=== PATIENT | female | born 1990 | race Caucasian/White ===

== ENCOUNTER 2016-11-28 00:43 | Emergency (ER) | payer BC, OTHER ==
[2016-11-28 01:00] VITALS: BP 148/85
--- NOTE | 2016-11-28 01:19 | EDM.PDOC ---
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 Patient is 7 weeks . She is 2 para zero. The patient had some spotting one time a short while ago this was preceded with some lower back discomfort. Patient hasn't had any cramping or contractions. She's had a prior miscarriage about 6 years ago at the very tail end of the first trimester. Patient denies any fevers or chills no burning or frequency with urination. 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 Social & Family History - Family History Family Medical History: Noncontributory - Tobacco Use Smoking Status *Q: Never Smoker - Caffeine Use Caffeine Use: Reports: None - Alcohol Use Days Per Week of Alcohol Use: 0 - Recreational Drug Use Recreational Drug Use: No ED ROS GENERAL - Review of Systems Review Of Systems: See Below Constitutional: Reports: No Symptoms Respiratory: Reports: No Symptoms Cardiovascular: Reports: No Symptoms GI/Abdominal: Reports: No Symptoms : Denies: Dysuria, Flank Pain, Frequency, Hematuria ED EXAM - Physical Exam Exam: See Below Exam Limited By: No Limitations General Appearance: Alert, No Apparent Distress Respiratory/Chest: No Respiratory Distress, Lungs Clear, Normal Breath Sounds Cardiovascular: Regular Rate, Rhythm, No Edema, No Murmur GI/Abdominal: Normal Bowel Sounds, Soft, Non-Tender (Female) Exam: Normal Bimanual Exam, Normal External Exam, Other (Speculum exam reveals no anatomic abnormalities she's got a scant amount of blood noticed no clots no tissue bimanual examination is unremarkable no cervical motion tenderness) Extremities: Normal Inspection Neurological: Alert, Oriented Course - Vital Signs Last Recorded V/S: Last Vital Signs Temp 36.7 C 11/28/16 00:50 Pulse 65 11/28/16 00:50 Resp 18 11/28/16 00:50 BP 148/85 H 11/28/16 00:50 Pulse Ox 100 11/28/16 00:50 - Orders/Labs/Meds Orders: Active Orders 24 hr Category Date Time Status PATIENT RETYPE [BBK] Stat Lab 11/28/16 01:31 Results RH IMMUNE GLOBULIN [BBK] Stat Lab 11/28/16 01:31 Results RHIG WORKUP, 1ST TRIMESTER [BBK] Stat Lab 11/28/16 01:31 Results TYPE AND SCREEN [BBK] Stat Lab 11/28/16 01:31 Results Labs: Laboratory Tests 11/28/16 11/28/16 11/28/16 Range/Units 01:30 01:31 01:31 WBC 10.51 H (3.98-10.04) K/mm3 RBC 4.87 (3.98-5.22) M/mm3 Hgb 14.4 (11.2-15.7) gm/L Hct 40.7 (34.1-44.9) % MCV 83.6 (79.4-94.8) fl MCH 29.6 (25.6-32.2) pg MCHC 35.4 (32.2-35.5) g/dl RDW Std Deviation 37.6 (36.4-46.3) fL Plt Count 272 (182-369) K/mm3 MPV 10.1 (9.4-12.3) fl Neutrophils % (Manual) 87 H (40-60) % Band Neutrophils % 0 (0-10) % Lymphocytes % (Manual) 11 L (20-40) % Atypical Lymphs % 0 % Monocytes % (Manual) 1 L (2-10) % Eosinophils % (Manual) 1 (0.7-5.8) % Basophils % (Manual) 0 L (0.1-1.2) Platelet Estimate Adequate RBC Morph Comment Normal HCG, Quant 619515.0 mIU/mL Urine Color Light yellow (Yellow) Urine Appearance Clear (Clear) Urine pH 6.5 (5.0-8.0) Ur Specific [place] 1.015 (1.005-1.030) Urine Protein Negative (Negative) Urine Glucose (UA) Negative (Negative) Urine Ketones 1+ H (Negative) Urine Occult Blood 2+ H (Negative) Urine Nitrite Negative (Negative) Urine Bilirubin Negative (Negative) Urine Urobilinogen 0.2 (0.2-1.0) Ur Leukocyte Esterase Negative (Negative) Urine RBC 0-5 (0-5) /hpf Urine WBC 0-5 (0-5) /hpf Ur Epithelial Cells Not Reportable Ur Squamous Epith Cells 5-10 H (0-5) /hpf Urine Bacteria Few (FEW) /hpf Urine Mucus Few (FEW) /hpf Blood Type Gel Antibody Screen Rhogam Indicated 11/28/16 Range/Units 01:31 WBC (3.98-10.04) K/mm3 RBC (3.98-5.22) M/mm3 Hgb (11.2-15.7) gm/L Hct (34.1-44.9) % MCV (79.4-94.8) fl MCH (25.6-32.2) pg MCHC (32.2-35.5) g/dl RDW Std Deviation (36.4-46.3) fL Plt Count (182-369) K/mm3 MPV (9.4-12.3) fl Neutrophils % (Manual) (40-60) % Band Neutrophils % (0-10) % Lymphocytes % (Manual) (20-40) % Atypical Lymphs % % Monocytes % (Manual) (2-10) % Eosinophils % (Manual) (0.7-5.8) % Basophils % (Manual) (0.1-1.2) Platelet Estimate RBC Morph Comment HCG, Quant mIU/mL Urine Color (Yellow) Urine Appearance (Clear) Urine pH (5.0-8.0) Ur Specific [place] (1.005-1.030) Urine Protein (Negative) Urine Glucose (UA) (Negative) Urine Ketones (Negative) Urine Occult Blood (Negative) Urine Nitrite (Negative) Urine Bilirubin (Negative) Urine Urobilinogen (0.2-1.0) Ur Leukocyte Esterase (Negative) Urine RBC (0-5) /hpf Urine WBC (0-5) /hpf Ur Epithelial Cells Ur Squamous Epith Cells (0-5) /hpf Urine Bacteria (FEW) /hpf Urine Mucus (FEW) /hpf Blood Type AB NEGATIVE Gel Antibody Screen Negative Rhogam Indicated Yes - Re-Assessments/Exams Free Text/Narrative Re-Assessment/Exam: 11/28/16 03:36 Labs unrevealing quantitative hCG is consistent with a seven-week . Blood type is AB- she did receive RhoGAM. 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 Departure - Departure Time of Disposition: 03:37 Disposition: Home, Self-Care 01 Clinical Impression: Threatened - Discharge Information Forms: ED Department Discharge Additional Instructions: Return to the emergency room with any questions or problems. You should take it easy, mostly bedrest the next couple of days. Return to the emergency room with heavy bleeding, more than 2 saturated pads an hour for [address] Followup with Dr[address] Fontenot on as scheduled - My Orders Last 24 Hours: My Active Orders 11/28/16 01:31 PATIENT RETYPE [BBK] Stat RH IMMUNE GLOBULIN [BBK] Stat RHIG WORKUP, 1ST TRIMESTER [BBK] Stat TYPE AND SCREEN [BBK] Stat - Assessment/Plan Last 24 Hours: My Active Orders 11/28/16 01:31 PATIENT RETYPE [BBK] Stat RH IMMUNE GLOBULIN [BBK] Stat RHIG WORKUP, 1ST TRIMESTER [BBK] Stat TYPE AND SCREEN [BBK] Stat
== END 2016-11-28 03:54 | disposition home or self-care (01) ==
LOC: JD.ED 00:43
DX: O20.0 Threatened abortion (principal); Z3A.01 Less than 8 weeks gestation of pregnancy
CPT/HCPCS: 36415; 81001; 84702; 85025; 86850; 86900; 86901; 96372; 99284; J2790; 99283

== ENCOUNTER 2017-07-03 16:47 | Inpatient (IN) | payer OTHER ==
[2017-07-03] MEDS ORDERED: Nalbuphine 20 MG/1 ML Amp IVPUSH PRN (17:05)
[2017-07-03] MEDS ORDERED: Sodium Chloride 0.9% 10 ML Syringe FLUSH PRN (17:05)
[2017-07-03] MEDS ORDERED: Ondansetron 4 MG/2 ML SDV IVPUSH PRN ×2 (17:05→20:58)
--- NOTE | 2017-07-03 17:09 | PCM.LDHP ---
L&D History of Present Illness - General Date of Service: 07/03/17 Admit Problem/Dx: Patient Status Order with Admit Dx/Problem 07/03/17 17:06 Patient Status [ADT] Routine Admission Diagnosis/Problem Admission Diagnosis/Problem 37 weeks gestation of Source of Information: Patient History Limitations: Reports: No Limitations - History of Present Illness Introduction:: Patient is a 27 y/o at 37 3/7 wks gestation who presents for IOL. At last clinic appointment was found to have a FH low for dates. For this reason was set up for an US. This was done today with an overall EFW of the 14%, but AC < 3%. Dopplers upper end of normal range. Also found in clinic to have a mild range BP of 140/90. Denies headaches, vision changes, RUQ pain. 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 : 2 Para: 0 LMP (Approximate): - Past Surgical History HEENT Surgical History: Reports: Oral Surgery (wisdom tooth extraction) Social & Family History - Family History Family Medical History: Noncontributory - Tobacco Use Smoking Status *Q: Never Smoker - Caffeine Use Caffeine Use: Reports: None - Alcohol Use Alcohol Use History: No Days Per Week of Alcohol Use: 0 - Recreational Drug Use Recreational Drug Use: No H&P Review of Systems - Review of Systems: Review Of Systems: See Below General: Reports: No Symptoms Pulmonary: Reports: No Symptoms Cardiovascular: Reports: No Symptoms Gastrointestinal: Reports: No Symptoms Genitourinary: Reports: No Symptoms Musculoskeletal: Reports: No Symptoms L&D Exam - Exam Exam: See Below - OB Specific Contraction Intensity: Mild Movement: Active Heart Tones: Present Heart Tones per Min: 135 Heart Rate (FHR) Variability: Moderate (6-25 bmp) Presentation: Vertex - Villanueva Score Villanueva Score Cervix Position: Midposition Villanueva Score Consistency: Soft Villanueva Score Effacement: 51-70% Villanueva Score Dilation: 3-4 cm Villanueva Score Infant's Station: -2 Villanueva Score Total: 8 - Exam General: Alert, Oriented, Cooperative Lungs: Clear to Auscultation, Normal Respiratory Effort Cardiovascular: Regular Rate, Regular Rhythm GI/Abdominal Exam: Soft, Non-Tender Genitourinary: Normal external exam Extremities: Normal Inspection Skin: Warm, Dry, Intact Neurological: Reflexes Equal Bilateral DTR: 2+: Patella (L), Patella (R) - Patient Data Result Diagrams: 07/03/17 17:30 07/03/17 17:35 - Problem List (1) 37 weeks gestation of SNOMED Code(s): 99759235 ICD Code: Z3A.37 - 37 WEEKS GESTATION OF Status: Acute Current Visit: Yes (2) Preeclampsia SNOMED Code(s): 002575654 ICD Code: O14.90 - UNSPECIFIED PRE-ECLAMPSIA, UNSPECIFIED TRIMESTER Status : Acute Current Visit: Yes Qualifiers: Trimester: third trimester Qualified Code(s): O14.93 - Unspecified pre- eclampsia, third trimester (3) IUGR (intrauterine growth restriction) SNOMED Code(s): 22193492 ICD Code: [id number] - Status: Acute Current Visit: Yes Problem List Initiated/Reviewed/Updated: Yes Orders Last 24hrs: Active Orders 24 hr Category Date Time Status Patient Status [ADT] Routine ADT 07/03/17 17:06 Ordered Communication Order [RC] ASDIRECTED Care 07/03/17 17:05 Ordered Communication Order [RC] ASDIRECTED Care 07/03/17 17:05 Ordered Communication Order [RC] ASDIRECTED Care 07/03/17 17:05 Ordered Heart Tones [RC] ASDIRECTED Care 07/03/17 17:06 Ordered Notify Provider [RC] ASDIRECTED Care 07/03/17 17:05 Ordered Notify Provider [RC] PRN Care 07/03/17 17:05 Ordered Peripheral IV Care [RC] . DIRECTED Care 07/03/17 17:06 Ordered Up ad Christine [RC] ASDIRECTED Care 07/03/17 17:05 Ordered Vaginal Exam [RC] ASDIRECTED Care 07/03/17 17:05 Ordered Vital Signs [RC] ASDIRECTED Care 07/03/17 17:05 Ordered Regular Diet [DIET] Diet 07/03/17 Dinner Ordered ALANINE AMINOTRANSFERASE,ALT [CHEM] Routine Lab 07/03/17 17:05 Ordered ASPARTATE AMNIOTRANSFERASE,AST [CHEM] Routine Lab 07/03/17 17:05 Ordered CBC W/O DIFF,HEMOGRAM [HEME] Routine Lab 07/03/17 17:05 Ordered CREATININE W/GFR [CHEM] Routine Lab 07/03/17 17:05 Ordered TYPE AND SCREEN [BBK] Routine Lab 07/03/17 17:05 Ordered Lactated Ringers [Ringers, Lactated] 1,000 ml Med 07/03/17 17:15 Ordered IV ASDIRECTED Nalbuphine [Nubain] Med 07/03/17 17:05 Ordered 10 mg IVPUSH Q2H PRN Ondansetron [Zofran] Med 07/03/17 17:05 Ordered 4 mg IVPUSH Q4H PRN Oxytocin/Lactated Ringers [Pitocin in LR 10 Units/1,000 Med 07/03/17 17:15 Ordered ML] 10 unit in 1,000 ml IV .CONTINUOUS Oxytocin/Lactated Ringers [Pitocin in LR 10 Units/1,000 Med 07/03/17 17:15 Ordered ML] 10 unit in 1,000 ml IV TITRATE Sodium Chloride 0.9% [Saline Flush] Med 07/03/17 17:05 Ordered 10 ml FLUSH ASDIRECTED PRN Electronic Heart Tones Ext w TOCO [WOMSER] Oth 07/03/17 17:05 Ordered Routine Electronic Heart Tones Internal [WOMSER] Per Unit Oth 07/03/17 17:05 Ordered Routine Peripheral IV Insertion Adult [OM.PC] Routine Oth 07/03/17 17:05 Ordered Resuscitation Status Routine Resus Stat 07/03/17 17:05 Ordered Assessment/Plan Comment:: * CBC, T&S, AST, ALT, Creatinine done * Will eventually start pitocin and arom * GBS negative no need for antibiotics 1814 * Received call from nursing that last 2 BP's severe range. Still working on admission. Asked to given 200 mg of oral labetalol (given 1822) and I would be in to assess 184 * Hold on induction for now * BP's still high, will give 20 mg of IV labetalol (given 1852) * Start magnesium * Labs returned normal. * If remain this high may need to consider moving towards
[2017-07-03] MEDS ORDERED: Oxytocin/Lactated Ringers 10 UNIT/1,000 ML BAG IV SCH ×2 (17:15)
[2017-07-03] MEDS: Lactated Ringers 1,000 ML IV SCH ×2 (17:55→20:55)
[2017-07-03] MEDS ORDERED: Labetalol 100 MG Tab PO ONE (18:16)
[2017-07-03] MEDS ORDERED: Calcium Gluconate 10% 1 GM/10 ML SDV IV PRN (18:43)
[2017-07-03] MEDS ORDERED: Magnesium Sulfate/Water 2 GM in Premix Bag 1 BAG IV ONE (18:43)
[2017-07-03] MEDS ORDERED: Magnesium Sulfate/Water 4 GM in Premix Bag 1 BAG IV ONE (18:43)
[2017-07-03] MEDS ORDERED: Magnesium Sulfate/Water 100 ML ONE (18:47)
[2017-07-03] MEDS ORDERED: Magnesium Sulfate/Water 50 ML ONE (18:47)
[2017-07-03] MEDS ORDERED: Magnesium Sulfate/Water 40 GM/1,000 ML BAG ONE (18:48)
[2017-07-03] MEDS ORDERED: Labetalol 100 MG/20 ML MDV ONE (18:49)
[2017-07-03] MEDS ORDERED: Labetalol 100 MG/20 ML MDV IVPUSH ONE (18:50)
[2017-07-03] MEDS: Magnesium Sulfate/Water 40 GM/1,000 ML BAG IV SCH (19:45)
--- NOTE | 2017-07-03 19:50 | PCM.SN ---
- Free Text/Narrative Note: Last 3 BP's mild range. 144/103, 148/89, and 152/97. Will start IOL. AROM performed and pitocin to be started. Charis Fontenot MD
[2017-07-03] MEDS ORDERED: diphenhydrAMINE 50 MG/ML SDV IVPUSH PRN (20:58)
[2017-07-03] MEDS ORDERED: fentaNYL 100 MCG/2 ML SDV EPIDUR PRN (20:58)
[2017-07-03] MEDS ORDERED: ePHEDrine 50 MG/ML SDV IVPUSH PRN (20:58)
--- NOTE | 2017-07-03 20:58 | PCM.PREANE ---
Preanesthetic Assessment - Procedure Proposed Procedure: MAYKEL - Anesthesia/Transfusion/Family Hx Anesthesia History: No Prior Anesthesia Family History of Anesthesia Reaction: No Transfusion History: No Prior Transfusion(s) - Review of Systems General: No Symptoms Pulmonary: No Symptoms Cardiovascular: No Symptoms Gastrointestinal: Other (GERD occasionally ) Neurological: No Symptoms Other: Reports: None - Physical Assessment NPO Status Date: 07/03/17 NPO Status Time: 20:00 Pulse: 58 O2 Sat by Pulse Oximetry: 100 Respiratory Rate: 15 Blood Pressure: 156/100 Vital Signs: Last Vital Signs Temp 36.4 C 07/03/17 17:37 Pulse 58 L 07/03/17 18:53 Resp 15 07/03/17 17:37 BP 190/119 H 07/03/17 18:53 Pulse Ox 100 07/03/17 17:37 Height: 1.52 m Weight: 59.421 kg ASA Class: 2 Mental Status: Alert & Oriented x3 Airway Class: Mallampati = 1 Dentition: Reports: Normal Dentition Thyro-Mental Finger Breadths: 3 Mouth Opening Finger Breadths: 3 ROM/Head Extension: Full Lungs: Clear to Auscultation, Normal Respiratory Effort Cardiovascular: Regular Rate, Regular Rhythm - Lab Values: Laboratory Last Values WBC 11.16 K/mm3 (3.98-10.04) H 07/03/17 17:30 RBC 4.48 M/mm3 (3.98-5.22) 07/03/17 17:30 Hgb 13.8 gm/L (11.2-15.7) 07/03/17 17:30 Hct 40.9 % (34.1-44.9) 07/03/17 17:30 MCV 91.3 fl (79.4-94.8) 07/03/17 17:30 MCH 30.8 pg (25.6-32.2) 07/03/17 17:30 MCHC 33.7 g/dl (32.2-35.5) 07/03/17 17:30 RDW Std Deviation 45.0 fL (36.4-46.3) 07/03/17 17:30 Plt Count 170 K/mm3 (182-369) L 07/03/17 17:30 MPV 11.7 fl (9.4-12.3) 07/03/17 17:30 Creatinine 0.7 mg/dL (0.55-1.02) 07/03/17 17:35 Est Cr Clr Drug Dosing 88.25 mL/min 07/03/17 17:35 Estimated GFR (MDRD) > 60 mL/min (>60) 07/03/17 17:35 AST 16 U/L (15-37) 07/03/17 17:35 ALT 18 U/L (14-59) 07/03/17 17:35 Urine Color Yellow (Yellow) 07/03/17 18:35 Urine Appearance Clear (Clear) 07/03/17 18:35 Urine pH 6.5 (5.0-8.0) 07/03/17 18:35 Ur Specific [place] 1.020 (1.005-1.030) 07/03/17 18:35 Urine Protein 1+ (Negative) H 07/03/17 18:35 Urine Glucose (UA) Negative (Negative) 07/03/17 18:35 Urine Ketones Negative (Negative) 07/03/17 18:35 Urine Occult Blood Negative (Negative) 07/03/17 18:35 Urine Nitrite Negative (Negative) 07/03/17 18:35 Urine Bilirubin Negative (Negative) 07/03/17 18:35 Urine Urobilinogen 0.2 (0.2-1.0) 07/03/17 18:35 Ur Leukocyte Esterase Negative (Negative) 07/03/17 18:35 Urine RBC 0-5 /hpf (0-5) 07/03/17 18:35 Urine WBC 0-5 /hpf (0-5) 07/03/17 18:35 Ur Epithelial Cells 0-5 /hpf (0-5) 07/03/17 18:35 Urine Bacteria Rare /hpf (FEW) 07/03/17 18:35 Urine Mucus Not seen /hpf (FEW) 07/03/17 18:35 - Allergies Allergies/Adverse Reactions: Allergies Allergy/AdvReac Type Severity Reaction Status Date / Time peanut Allergy Severe Other Verified 07/03/17 17:49 soy Allergy Severe Other Verified 07/03/17 17:49 - Blood Blood Available: No Product(s) Available: None - Anesthesia Plan Pre-Op Medication Ordered: None - Acknowledgements Anesthesia Type Planned: Epidural Pt an Appropriate Candidate for the Planned Anesthesia: Yes Alternatives and Risks of Anesthesia Discussed w Pt/Guardian: Yes Pt/Guardian Understands and Agrees with Anesthesia Plan: Yes PreAnesthesia Questionnaire - Past Health History Medical/Surgical History: Denies 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: , 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 - Past Surgical History HEENT Surgical History: Reports: Oral Surgery (wisdom tooth extraction) - SUBSTANCE USE Smoking Status *Q: Never Smoker Second Hand Smoke Exposure: No Days Per Week of Alcohol Use: 0 Recreational Drug Use History: No - HOME MEDS Home Medications: Home Meds PNV95/Ferrous Fumarate/FA [ Formula] 1 each PO DAILY 11/28/16 [History] - CURRENT (IN HOUSE) MEDS Current Meds: Current Medications Calcium Gluconate (Calcium Gluconate) 1 gm IV ASDIRECTED PRN PRN Reason: respiratory distress Lactated Ringer's (Ringers, Lactated) 1,000 mls @ 40 mls/hr IV ASDIRECTED KRAEN Last Admin: 07/03/17 17:55 Dose: 40 mls/hr Oxytocin/Lactated Ringer's (Pitocin In Lr 10 Units/1,000 Ml) 10 unit in 1,000 mls @ 12 mls/hr IV TITRATE KAREN; 2 MUNITS/MIN PRN Reason: Protocol Last Titration: 07/03/17 20:21 Dose: 2 munits/min, 12 mls/hr Oxytocin/Lactated Ringer's (Pitocin In Lr 10 Units/1,000 Ml) 10 unit in 1,000 mls @ 500 mls/hr IV .CONTINUOUS KAREN Magnesium Sulfate (Magnesium Sulfate 40 Gm In Water 1000 Ml) 40 gm in 1,000 mls @ 50 mls/hr IV ASDIRECTED KAREN Last Admin: 07/03/17 19:45 Dose: 50 mls/hr Nalbuphine HCl (Nubain) 10 mg IVPUSH Q2H PRN PRN Reason: Pain (moderate 4-6) Ondansetron HCl (Zofran) 4 mg IVPUSH Q4H PRN PRN Reason: Nausea/Vomiting Sodium Chloride (Saline Flush) 10 ml FLUSH ASDIRECTED PRN PRN Reason: Keep Vein Open Discontinued Medications Magnesium Sulfate 4 gm/ Premix 100 mls @ 300 mls/hr IV ONETIME ONE Stop: 07/03/17 19:02 Last Admin: 07/03/17 19:05 Dose: 300 mls/hr Magnesium Sulfate 2 gm/ Premix 50 mls @ 300 mls/hr IV ONETIME ONE Stop: 07/03/17 18:52 Last Admin: 07/03/17 19:32 Dose: 300 mls/hr Magnesium Sulfate (Magnesium Sulfate 4 Gm In Water 100 Ml) Confirm Administered Dose 100 mls @ as directed .ROUTE .STK-MED ONE Stop: 07/03/17 18:48 Magnesium Sulfate (Magnesium Sulfate 2 Gm In Water 50 Ml) Confirm Administered Dose 50 mls @ as directed .ROUTE .STK-MED ONE Stop: 07/03/17 18:48 Magnesium Sulfate (Magnesium Sulfate 40 Gm In Water 1000 Ml) Confirm Administered Dose 40 gm in 1,000 mls @ as directed .ROUTE .STK-MED ONE Stop: 07/03/17 18:49 Labetalol HCl (Normodyne) 200 mg PO ONETIME ONE Stop: 07/03/17 18:17 Last Admin: 07/03/17 18:23 Dose: 200 mg Labetalol HCl (Normodyne) 20 mg IVPUSH ONETIME ONE PRN Reason: Protocol Stop: 07/03/17 18:51 Last Admin: 07/03/17 18:53 Dose: 4 ml Labetalol HCl (Normodyne) Confirm Administered Dose 100 mg .ROUTE .STK-MED ONE Stop: 07/03/17 18:50
[2017-07-03] MEDS ORDERED: fentaNYL 100 MCG/2 ML SDV ONE (20:59)
[2017-07-03] MEDS ORDERED: Bupivacaine/fentaNYL/NS 100 ML Bag EPIDUR SCH (21:00)
--- NOTE | 2017-07-03 21:55 | PCM.DEL ---
L & D Note - General Info Date of Service: 07/03/17 - Delivery Note Labor: Induced by ARM, Induced by Oxytocin Delivery Outcome: Livebirth Infant Delivery Method: Spontaneous Vaginal Delivery-Single Delivery Mode: Spontaneous Presentation: Right Occiput Anterior (HOANG) Nuchal Cord: None Anesthesia Type: Epidural Amniotic Fluid Description: Clear Episiotomy Type: None Laceration: None Placenta: Intact, Spontaneous Cord: 3 Vessels Estimated Blood Loss: 200 Resuscitation Needed: Yes [place]: Bulb Syringe, Stimulated, Warmed, [place] Used, Warmer Used Score 1 min: 8 Score 5 min: 8 Delivery Comments (Free Text/Narrative):: Patient made rapid change to complete dilation. Did receive epidural just prior to starting pushing. Once began pushing head delivered from an HOANG presentation. No nuchal cord present. With gentle downward traction the shoulders and body delivered. Infant placed on maternal abdomen. Cord clamped and cut. Cord blood obtained. Placenta allowed time to separate and spontaneously expelled. Inspection of the perineum showed no lacerations - Patient Data Vitals - Most Recent: Last Vital Signs Temp 36.4 C 07/03/17 17:37 Pulse 58 L 07/03/17 20:59 Resp 15 07/03/17 20:59 BP 156/100 H 07/03/17 20:59 Pulse Ox 100 07/03/17 20:59 Weight - Most Recent: 59.421 kg I&O - Last 24 Hours: Intake & Output 07/03/17 07/03/17 07/03/17 06:59 14:59 22:59 Output Total 475 Balance -475 Lab Results Last 24 Hours: Laboratory Results - last 24 hr 07/03/17 07/03/17 07/03/17 Range/Units 17:30 17:30 17:35 WBC 11.16 H (3.98-10.04) K/mm3 RBC 4.48 (3.98-5.22) M/mm3 Hgb 13.8 (11.2-15.7) gm/L Hct 40.9 (34.1-44.9) % MCV 91.3 (79.4-94.8) fl MCH 30.8 (25.6-32.2) pg MCHC 33.7 (32.2-35.5) g/dl RDW Std Deviation 45.0 (36.4-46.3) fL Plt Count 170 L (182-369) K/mm3 MPV 11.7 (9.4-12.3) fl Creatinine 0.7 (0.55-1.02) mg/dL Est Cr Clr Drug Dosing 88.25 mL/min Estimated GFR (MDRD) > 60 (>60) mL/min AST 16 (15-37) U/L ALT 18 (14-59) U/L Urine Color (Yellow) Urine Appearance (Clear) Urine pH (5.0-8.0) Ur Specific [place] (1.005-1.030) Urine Protein (Negative) Urine Glucose (UA) (Negative) Urine Ketones (Negative) Urine Occult Blood (Negative) Urine Nitrite (Negative) Urine Bilirubin (Negative) Urine Urobilinogen (0.2-1.0) Ur Leukocyte Esterase (Negative) Urine RBC (0-5) /hpf Urine WBC (0-5) /hpf Ur Epithelial Cells (0-5) /hpf Urine Bacteria (FEW) /hpf Urine Mucus (FEW) /hpf Blood Type AB NEGATIVE 07/03/17 Range/Units 18:35 WBC (3.98-10.04) K/mm3 RBC (3.98-5.22) M/mm3 Hgb (11.2-15.7) gm/L Hct (34.1-44.9) % MCV (79.4-94.8) fl MCH (25.6-32.2) pg MCHC (32.2-35.5) g/dl RDW Std Deviation (36.4-46.3) fL Plt Count (182-369) K/mm3 MPV (9.4-12.3) fl Creatinine (0.55-1.02) mg/dL Est Cr Clr Drug Dosing mL/min Estimated GFR (MDRD) (>60) mL/min AST (15-37) U/L ALT (14-59) U/L Urine Color Yellow (Yellow) Urine Appearance Clear (Clear) Urine pH 6.5 (5.0-8.0) Ur Specific [place] 1.020 (1.005-1.030) Urine Protein 1+ H (Negative) Urine Glucose (UA) Negative (Negative) Urine Ketones Negative (Negative) Urine Occult Blood Negative (Negative) Urine Nitrite Negative (Negative) Urine Bilirubin Negative (Negative) Urine Urobilinogen 0.2 (0.2-1.0) Ur Leukocyte Esterase Negative (Negative) Urine RBC 0-5 (0-5) /hpf Urine WBC 0-5 (0-5) /hpf Ur Epithelial Cells 0-5 (0-5) /hpf Urine Bacteria Rare (FEW) /hpf Urine Mucus Not seen (FEW) /hpf Blood Type Med Orders - Current: Current Medications Calcium Gluconate (Calcium Gluconate) 1 gm IV ASDIRECTED PRN PRN Reason: respiratory distress Diphenhydramine HCl (Benadryl) 25 mg IVPUSH Q6H PRN PRN Reason: Pruritis Ephedrine Sulfate (Ephedrine Sulfate) 5 mg IVPUSH ASDIRECTED PRN PRN Reason: Hypotension Fentanyl (Sublimaze) 100 mcg EPIDUR Q3H PRN PRN Reason: Pain Last Admin: 07/03/17 21:32 Dose: 100 mcg Fentanyl/Bupivacaine HCl (Fentanyl/Bupivacaine/Ns 2 Mcg-0.125% 100 Ml) 100 ml EPIDUR ASDIRECTED KAREN Last Admin: 07/03/17 21:33 Dose: 100 ml Lactated Ringer's (Ringers, Lactated) 1,000 mls @ 40 mls/hr IV ASDIRECTED KAREN Last Admin: 07/03/17 20:55 Dose: 999 mls/hr Oxytocin/Lactated Ringer's (Pitocin In Lr 10 Units/1,000 Ml) 10 unit in 1,000 mls @ 12 mls/hr IV TITRATE KAREN; 2 MUNITS/MIN PRN Reason: Protocol Last Titration: 07/03/17 21:09 Dose: 0 munits/min, 0 mls/hr Oxytocin/Lactated Ringer's (Pitocin In Lr 10 Units/1,000 Ml) 10 unit in 1,000 mls @ 500 mls/hr IV .CONTINUOUS KAREN Magnesium Sulfate (Magnesium Sulfate 40 Gm In Water 1000 Ml) 40 gm in 1,000 mls @ 50 mls/hr IV ASDIRECTED KAREN Last Admin: 07/03/17 19:45 Dose: 50 mls/hr Nalbuphine HCl (Nubain) 10 mg IVPUSH Q2H PRN PRN Reason: Pain (moderate 4-6) Ondansetron HCl (Zofran) 4 mg IVPUSH Q4H PRN PRN Reason: Nausea/Vomiting Ondansetron HCl (Zofran) 4 mg IVPUSH ONETIME PRN PRN Reason: Nausea/Vomiting Sodium Chloride (Saline Flush) 10 ml FLUSH ASDIRECTED PRN PRN Reason: Keep Vein Open Discontinued Medications Fentanyl (Sublimaze) Confirm Administered Dose 100 mcg .ROUTE .STK-MED ONE Stop: 07/03/17 21:00 Magnesium Sulfate 4 gm/ Premix 100 mls @ 300 mls/hr IV ONETIME ONE Stop: 07/03/17 19:02 Last Admin: 07/03/17 19:05 Dose: 300 mls/hr Magnesium Sulfate 2 gm/ Premix 50 mls @ 300 mls/hr IV ONETIME ONE Stop: 07/03/17 18:52 Last Admin: 07/03/17 19:32 Dose: 300 mls/hr Magnesium Sulfate (Magnesium Sulfate 4 Gm In Water 100 Ml) Confirm Administered Dose 100 mls @ as directed .ROUTE [facility] ONE Stop: 07/03/17 18:48 Last Admin: 07/03/17 20:48 Dose: Not Given Magnesium Sulfate (Magnesium Sulfate 2 Gm In Water 50 Ml) Confirm Administered Dose 50 mls @ as directed .ROUTE [facility] ONE Stop: 07/03/17 18:48 Last Admin: 07/03/17 20:48 Dose: Not Given Magnesium Sulfate (Magnesium Sulfate 40 Gm In Water 1000 Ml) Confirm Administered Dose 40 gm in 1,000 mls @ as directed .ROUTE .[facility] ONE Stop: 07/03/17 18:49 Last Admin: 07/03/17 20:48 Dose: Not Given Labetalol HCl (Normodyne) 200 mg PO ONETIME ONE Stop: 07/03/17 18:17 Last Admin: 07/03/17 18:23 Dose: 200 mg Labetalol HCl (Normodyne) 20 mg IVPUSH ONETIME ONE PRN Reason: Protocol Stop: 07/03/17 18:51 Last Admin: 07/03/17 18:53 Dose: 4 ml Labetalol HCl (Normodyne) Confirm Administered Dose 100 mg .ROUTE .STK-MED ONE Stop: 07/03/17 18:50 Last Admin: 07/03/17 20:48 Dose: Not Given - Problem List & Annotations (1) 37 weeks gestation of SNOMED Code(s): 38807781 Code(s): Z3A.37 - 37 WEEKS GESTATION OF Status: Acute Current Visit: Yes (2) Preeclampsia SNOMED Code(s): 198070551 Code(s): O14.90 - UNSPECIFIED PRE-ECLAMPSIA, UNSPECIFIED TRIMESTER Status: Acute Current Visit: Yes Qualifiers: Trimester: third trimester Qualified Code(s): O14.93 - Unspecified pre- eclampsia, third trimester (3) IUGR (intrauterine growth restriction) SNOMED Code(s): 42963473 Code(s): UMS9529 - Status: Acute Current Visit: Yes (4) Vaginal delivery SNOMED Code(s): 098091422 Code(s): O80 - ENCOUNTER FOR FULL-TERM UNCOMPLICATED DELIVERY Status: Acute Current Visit: Yes - Problem List Review Problem List Initiated/Reviewed/Updated: Yes - My Orders Last 24 Hours: My Active Orders 07/03/17 17:05 Communication Order [RC] ASDIRECTED Communication Order [RC] ASDIRECTED Communication Order [RC] ASDIRECTED Notify Provider [RC] ASDIRECTED Notify Provider [RC] PRN Vital Signs [RC] ASDIRECTED Nalbuphine [Nubain] 10 mg IVPUSH Q2H PRN Ondansetron [Zofran] 4 mg IVPUSH Q4H PRN Sodium Chloride 0.9% [Saline Flush] 10 ml FLUSH ASDIRECTED PRN Electronic Heart Tones Ext w TOCO [WOMSER] Routine Electronic Heart Tones Internal [WOMSER] Per Unit Routine Peripheral IV Insertion Adult [OM.PC] Routine Resuscitation Status Routine 07/03/17 17:06 Patient Status [ADT] Routine Peripheral IV Care [RC] . DIRECTED 07/03/17 17:15 Lactated Ringers [Ringers, Lactated] 1,000 ml IV ASDIRECTED Oxytocin/Lactated Ringers [Pitocin in LR 10 Units/1,000 ML] 10 unit in 1,000 ml IV .CONTINUOUS Oxytocin/Lactated Ringers [Pitocin in LR 10 Units/1,000 ML] 10 unit in 1,000 ml IV TITRATE 07/03/17 17:30 TYPE AND SCREEN [BBK] Routine 07/03/17 18:43 Bedrest [RC] ASDIRECTED Communication Order [RC] ASDIRECTED Notify Provider Status Change [RC] ASDIRECTED Notify Provider Vital Signs [RC] ASDIRECTED Notify Provider [RC] ASDIRECTED Vital Signs [RC] ASDIRECTED Calcium Gluconate 1 gm IV ASDIRECTED PRN 07/03/17 18:45 Magnesium Sulfate/Water [Magnesium Sulfate 40 GM in Water 1000 ML] 40 gm in 1, 000 ml IV ASDIRECTED Blood Pressure [OM.PC] ASDIRECTED Deep Tendon Reflexes [WOMSER] ASDIRECTED 07/03/17 Dinner Regular Diet [DIET] - Assessment Assessment:: 27 y/o G2 now P1011 PPD#0 from at 37 3/7 wks - Plan Plan:: / Severe preeclampsia * Continue magnesium * Hourly BP's * Strict I&O's * Encourage breast feeding * Discharge pending clinical course
[2017-07-03] MEDS ORDERED: Acetaminophen 325 MG Tab PO PRN (22:03)
[2017-07-03] MEDS ORDERED: Benzocaine/Menthol 20%-0.5% Spray 56 GM Canister TOP PRN (22:03)
[2017-07-03] MEDS ORDERED: Lanolin 100% Cream 7 GM Tube TOP PRN (22:03)
[2017-07-03] MEDS ORDERED: Docusate Sodium 100 MG Cap PO PRN (22:03)
[2017-07-03] MEDS ORDERED: Witch Hazel Medicated Pads 100/Jar TOP PRN (22:03)
[2017-07-03] MEDS: Ibuprofen 600 MG Tab PO PRN (23:19)
--- NOTE | 2017-07-04 06:50 | PCM.PNPP ---
- General Info Date of Service: 07/04/17 Functional Status: Reports: Pain Controlled, Urinating - Review of Systems General: Reports: No Symptoms Pulmonary: Reports: No Symptoms Cardiovascular: Reports: No Symptoms Gastrointestinal: Reports: No Symptoms Genitourinary: Reports: No Symptoms Musculoskeletal: Reports: No Symptoms Neurological: Reports: Headache (earlier in morning, now resolved ) - Patient Data Vital Signs - Most Recent: Last Vital Signs Temp 36.4 C 07/04/17 04:04 Pulse 73 07/04/17 04:04 Resp 14 07/04/17 04:04 BP 132/93 H 07/04/17 06:00 Pulse Ox 100 07/04/17 04:04 Weight - Most Recent: 59.421 kg I&O - Last 24 Hours: Intake & Output 07/03/17 07/03/17 07/04/17 14:59 22:59 06:59 Intake Total 2563 Output Total 475 2250 Balance -475 313 Lab Results - Last 24 Hours: Laboratory Results - last 24 hr 07/03/17 07/03/17 07/03/17 Range/Units 17:30 17:30 17:35 WBC 11.16 H (3.98-10.04) K/mm3 RBC 4.48 (3.98-5.22) M/mm3 Hgb 13.8 (11.2-15.7) gm/L Hct 40.9 (34.1-44.9) % MCV 91.3 (79.4-94.8) fl MCH 30.8 (25.6-32.2) pg MCHC 33.7 (32.2-35.5) g/dl RDW Std Deviation 45.0 (36.4-46.3) fL Plt Count 170 L (182-369) K/mm3 MPV 11.7 (9.4-12.3) fl Creatinine 0.7 (0.55-1.02) mg/dL Est Cr Clr Drug Dosing 88.25 mL/min Estimated GFR (MDRD) > 60 (>60) mL/min AST 16 (15-37) U/L ALT 18 (14-59) U/L Urine Color (Yellow) Urine Appearance (Clear) Urine pH (5.0-8.0) Ur Specific [place] (1.005-1.030) Urine Protein (Negative) Urine Glucose (UA) (Negative) Urine Ketones (Negative) Urine Occult Blood (Negative) Urine Nitrite (Negative) Urine Bilirubin (Negative) Urine Urobilinogen (0.2-1.0) Ur Leukocyte Esterase (Negative) Urine RBC (0-5) /hpf Urine WBC (0-5) /hpf Ur Epithelial Cells (0-5) /hpf Urine Bacteria (FEW) /hpf Urine Mucus (FEW) /hpf Blood Type AB NEGATIVE Gel Antibody Screen Positive 07/03/17 Range/Units 18:35 WBC (3.98-10.04) K/mm3 RBC (3.98-5.22) M/mm3 Hgb (11.2-15.7) gm/L Hct (34.1-44.9) % MCV (79.4-94.8) fl MCH (25.6-32.2) pg MCHC (32.2-35.5) g/dl RDW Std Deviation (36.4-46.3) fL Plt Count (182-369) K/mm3 MPV (9.4-12.3) fl Creatinine (0.55-1.02) mg/dL Est Cr Clr Drug Dosing mL/min Estimated GFR (MDRD) (>60) mL/min AST (15-37) U/L ALT (14-59) U/L Urine Color Yellow (Yellow) Urine Appearance Clear (Clear) Urine pH 6.5 (5.0-8.0) Ur Specific [place] 1.020 (1.005-1.030) Urine Protein 1+ H (Negative) Urine Glucose (UA) Negative (Negative) Urine Ketones Negative (Negative) Urine Occult Blood Negative (Negative) Urine Nitrite Negative (Negative) Urine Bilirubin Negative (Negative) Urine Urobilinogen 0.2 (0.2-1.0) Ur Leukocyte Esterase Negative (Negative) Urine RBC 0-5 (0-5) /hpf Urine WBC 0-5 (0-5) /hpf Ur Epithelial Cells 0-5 (0-5) /hpf Urine Bacteria Rare (FEW) /hpf Urine Mucus Not seen (FEW) /hpf Blood Type Gel Antibody Screen Med Orders - Current: Current Medications Acetaminophen (Tylenol) 650 mg PO Q4H PRN PRN Reason: mild pain or fever Benzocaine/Menthol (Dermoplast Pain Relief [place]) 0 gm TOP ASDIRECTED PRN PRN Reason: Perineal Comfort Measure Last Admin: 07/03/17 23:19 Dose: 1 can Calcium Gluconate (Calcium Gluconate) 1 gm IV ASDIRECTED PRN PRN Reason: respiratory distress Docusate Sodium (Colace) 100 mg PO BID PRN PRN Reason: Constipation Emollient Ointment (Lansinoh Hpa) 0 gm TOP ASDIRECTED PRN PRN Reason: Sore Nipples Last Admin: 07/03/17 23:19 Dose: 1 tube Lactated Ringer's (Ringers, Lactated) 1,000 mls @ 40 mls/hr IV ASDIRECTED KAREN Last Infusion: 07/04/17 02:55 Dose: Infused Magnesium Sulfate (Magnesium Sulfate 40 Gm In Water 1000 Ml) 40 gm in 1,000 mls @ 50 mls/hr IV ASDIRECTED KAREN Last Admin: 07/03/17 19:45 Dose: 50 mls/hr Ibuprofen (Motrin) 600 mg PO Q6H PRN PRN Reason: Mild pain or fever Last Admin: 07/03/17 23:19 Dose: 600 mg Witch Latosha (Tucks) 1 pad TOP ASDIRECTED PRN PRN Reason: Hemorrhoid pain Last Admin: 07/03/17 23:19 Dose: 1 container Discontinued Medications Diphenhydramine HCl (Benadryl) 25 mg IVPUSH Q6H PRN PRN Reason: Pruritis Ephedrine Sulfate (Ephedrine Sulfate) 5 mg IVPUSH ASDIRECTED PRN PRN Reason: Hypotension Fentanyl (Sublimaze) 100 mcg EPIDUR Q3H PRN PRN Reason: Pain Last Admin: 07/03/17 21:32 Dose: 100 mcg Fentanyl (Sublimaze) Confirm Administered Dose 100 mcg .ROUTE .STK-MED ONE Stop: 07/03/17 21:00 Last Admin: 07/04/17 05:20 Dose: Not Given Fentanyl/Bupivacaine HCl (Fentanyl/Bupivacaine/Ns 2 Mcg-0.125% 100 Ml) 100 ml EPIDUR ASDIRECTED KAREN Last Admin: 07/03/17 21:33 Dose: 100 ml Oxytocin/Lactated Ringer's (Pitocin In Lr 10 Units/1,000 Ml) 10 unit in 1,000 mls @ 12 mls/hr IV TITRATE KAREN; 2 MUNITS/MIN PRN Reason: Protocol Last Titration: 07/03/17 21:33 Dose: 999 mls/hr Oxytocin/Lactated Ringer's (Pitocin In Lr 10 Units/1,000 Ml) 10 unit in 1,000 mls @ 500 mls/hr IV .CONTINUOUS KAREN Magnesium Sulfate 4 gm/ Premix 100 mls @ 300 mls/hr IV ONETIME ONE Stop: 07/03/17 19:02 Last Admin: 07/03/17 19:05 Dose: 300 mls/hr Magnesium Sulfate 2 gm/ Premix 50 mls @ 300 mls/hr IV ONETIME ONE Stop: 07/03/17 18:52 Last Admin: 07/03/17 19:32 Dose: 300 mls/hr Magnesium Sulfate (Magnesium Sulfate 4 Gm In Water 100 Ml) Confirm Administered Dose 100 mls @ as directed .ROUTE .[facility] ONE Stop: 07/03/17 18:48 Last Admin: 07/03/17 20:48 Dose: Not Given Magnesium Sulfate (Magnesium Sulfate 2 Gm In Water 50 Ml) Confirm Administered Dose 50 mls @ as directed .ROUTE .[facility] ONE Stop: 07/03/17 18:48 Last Admin: 07/03/17 20:48 Dose: Not Given Magnesium Sulfate (Magnesium Sulfate 40 Gm In Water 1000 Ml) Confirm Administered Dose 40 gm in 1,000 mls @ as directed [facility] ONE Stop: 07/03/17 18:49 Last Admin: 07/03/17 20:48 Dose: Not Given Labetalol HCl (Normodyne) 200 mg PO ONETIME ONE Stop: 07/03/17 18:17 Last Admin: 07/03/17 18:23 Dose: 200 mg Labetalol HCl (Normodyne) 20 mg IVPUSH ONETIME ONE PRN Reason: Protocol Stop: 07/03/17 18:51 Last Admin: 07/03/17 18:53 Dose: 4 ml Labetalol HCl (Normodyne) Confirm Administered Dose 100 mg .[facility] ONE Stop: 07/03/17 18:50 Last Admin: 07/03/17 20:48 Dose: Not Given Nalbuphine HCl (Nubain) 10 mg IVPUSH Q2H PRN PRN Reason: Pain (moderate 4-6) Ondansetron HCl (Zofran) 4 mg IVPUSH Q4H PRN PRN Reason: Nausea/Vomiting Ondansetron HCl (Zofran) 4 mg IVPUSH ONETIME PRN PRN Reason: Nausea/Vomiting Sodium Chloride (Saline Flush) 10 ml FLUSH ASDIRECTED PRN PRN Reason: Keep Vein Open - Infant Interaction Disposition, : [place] in Room with Family Infant Interaction: Holding Infant Feeding: Attempted ; Nursed Fair/Poor Support Person: - Recovery Exam Fundal Tone: Firm Fundal Level: 1 Fingerbreadths Below Umbilicus Fundal Placement: Midline Lochia Amount: Small Lochia Color: [place]/Red Perineum Description: Intact, Minimal Bruising/Swelling Episiotomy/Laceration: None Bladder Status: Voiding - Exam General: Alert, Oriented, Cooperative Lungs: Clear to Auscultation, Normal Respiratory Effort Cardiovascular: Regular Rate, Regular Rhythm GI/Abdominal Exam: Soft, Non-Tender Extremities: Normal Inspection Skin: Warm, Dry, Intact Neurological: Reflexes Equal Bilateral (+2) - Problem List & Annotations (1) 37 weeks gestation of SNOMED Code(s): 03171231 Code(s): Z3A.37 - 37 WEEKS GESTATION OF Status: Acute Current Visit: Yes (2) Preeclampsia SNOMED Code(s): 856912815 Code(s): O14.90 - UNSPECIFIED PRE-ECLAMPSIA, UNSPECIFIED TRIMESTER Status: Acute Current Visit: Yes Qualifiers: Trimester: third trimester Qualified Code(s): O14.93 - Unspecified pre- eclampsia, third trimester (3) IUGR (intrauterine growth restriction) SNOMED Code(s): 92758657 Code(s): MGJ2237 - Status: Acute Current Visit: Yes (4) Vaginal delivery SNOMED Code(s): 391153620 Code(s): O80 - ENCOUNTER FOR FULL-TERM UNCOMPLICATED DELIVERY Status: Acute Current Visit: Yes - Problem List Review Problem List Initiated/Reviewed/Updated: Yes - My Orders Last 24 Hours: My Active Orders 07/03/17 17:05 Vital Signs [RC] ASDIRECTED Resuscitation Status Routine 07/03/17 17:06 Peripheral IV Care [RC] Q2HR 07/03/17 17:15 Lactated Ringers [Ringers, Lactated] 1,000 ml IV ASDIRECTED 07/03/17 17:30 ANTIBODY IDENTIFICATION [BBK] Routine TYPE AND SCREEN [BBK] Routine 07/03/17 18:43 Bedrest [RC] ASDIRECTED Communication Order [RC] ASDIRECTED Notify Provider Status Change [RC] ASDIRECTED Notify Provider Vital Signs [RC] ASDIRECTED Notify Provider [RC] ASDIRECTED Vital Signs [RC] Q1HR Calcium Gluconate 1 gm IV ASDIRECTED PRN 07/03/17 18:45 Magnesium Sulfate/Water [Magnesium Sulfate 40 GM in Water 1000 ML] 40 gm in 1, 000 ml IV ASDIRECTED Deep Tendon Reflexes [WOMSER] ASDIRECTED 07/03/17 22:03 Acetaminophen [Tylenol] 650 mg PO Q4H PRN Benzocaine/Menthol [Dermoplast Pain Relief [place]] See Dose Instructions TOP ASDIRECTED PRN Docusate Sodium [Colace] 100 mg PO BID PRN Ibuprofen [Motrin] 600 mg PO Q6H PRN Lanolin [Lansinoh HPA] See Dose Instructions TOP ASDIRECTED PRN Witch Latosha [Tucks] 1 pad TOP ASDIRECTED PRN Assess Lochia [WOMSER] Per Unit Routine Assess Uterine Involution [WOMSER] Per Unit Routine Breast Pump [WOMSER] Per Unit Routine Heat Therapy [OM.PC] PRN Ice Therapy [OM.PC] Per Unit Routine Perineal Care [OM.PC] Per Unit Routine Sitz Bath [OM.PC] Per Unit Routine 07/03/17 Breakfast Regular Diet [DIET] 07/04/17 22:03 Heat Therapy [OM.PC] PRN - Assessment Assessment:: 27 y/o G2 now P1011 PPD#1 from at 37 3/7 wks - Plan Plan:: / Severe preeclampsia * Continue magnesium. BP's have been normal to mild range after delivery. May require anti-hypertensive therapy once magnesium discontinued * Hourly BP's * Strict I&O's * Encourage breast feeding * Baby Rh negative, no need for Rhogam * Discharge tomorrow vs later if further monitoring required
[2017-07-04] MEDS: Lactated Ringers 1,000 ML IV SCH (07:18)
--- NOTE | 2017-07-04 07:40 | PCM48HPAN ---
Post Anesthesia Note - EVALUATION WITHIN 48HRS OF ANESTHETIC Vital Signs in Normal Range: Yes Patient Participated in Evaluation: Yes Respiratory Function Stable: Yes Airway Patent: Yes Cardiovascular Function Stable: Yes Hydration Status Stable: Yes Pain Control Satisfactory: Yes Nausea and Vomiting Control Satisfactory: Yes Mental Status Recovered: Yes
[2017-07-04] MEDS: Magnesium Sulfate/Water 40 GM/1,000 ML BAG IV SCH (16:15)
[2017-07-04] MEDS: Ibuprofen 600 MG Tab PO PRN (18:49)
[2017-07-04] MEDS ORDERED: Labetalol 100 MG Tab PO ONE (19:36)
--- NOTE | 2017-07-04 21:32 | PCM.SN ---
- Free Text/Narrative Note: 2129 Received call from nursing at 1900 that patient having slight rib pain and had a BP of 163/106. This was after all day of having low mild range BP's and rare high mild range BP's. Asked nursing to complete labs and give patient an oral dose of 200 mg of labetalol. Can also discontinue magnesium as has been about 24 hours of duration. BP 1 hour after labetalol was 126/65. Patient with new abnormalities in LFT's. Will repeat in AM. Will also plan to continue labetalol every 12 hours. Charis Fontenot MD Laboratory Last Values WBC 12.97 K/mm3 (3.98-10.04) H 07/04/17 19:25 RBC 4.45 M/mm3 (3.98-5.22) 07/04/17 19:25 Hgb 14.2 gm/L (11.2-15.7) 07/04/17 19:25 Hct 41.3 % (34.1-44.9) 07/04/17 19:25 MCV 92.8 fl (79.4-94.8) 07/04/17 19:25 MCH 31.9 pg (25.6-32.2) 07/04/17 19:25 MCHC 34.4 g/dl (32.2-35.5) 07/04/17 19:25 RDW Std Deviation 45.9 fL (36.4-46.3) 07/04/17 19:25 Plt Count 146 K/mm3 (182-369) L 07/04/17 19:25 MPV 10.9 fl (9.4-12.3) 07/04/17 19:25 Neut % (Auto) 87.7 % (34.0-71.1) H 07/04/17 19:25 Lymph % (Auto) 6.4 % (19.3-51.7) L 07/04/17 19:25 [place] % (Auto) 5.0 % (4.7-12.5) 07/04/17 19:25 Eos % (Auto) 0.2 (0.7-5.8) L 07/04/17 19:25 Baso % (Auto) 0.2 % (0.1-1.2) 07/04/17 19:25 Neut # (Auto) 11.38 K/mm3 (1.56-6.13) H 07/04/17 19:25 Lymph # (Auto) 0.83 K/mm3 (1.18-3.74) L 07/04/17 19:25 [place] # (Auto) 0.65 K/mm3 (0.24-0.36) H 07/04/17 19:25 Eos # (Auto) 0.03 K/mm3 (0.04-0.36) L 07/04/17 19:25 Baso # (Auto) 0.02 K/mm3 (0.01-0.08) 07/04/17 19:25 Manual Slide Review Normal smear 07/04/17 19:25 Creatinine 0.7 mg/dL (0.55-1.02) 07/03/17 17:35 Est Cr Clr Drug Dosing 88.25 mL/min 07/03/17 17:35 Estimated GFR (MDRD) > 60 mL/min (>60) 07/03/17 17:35 AST 165 U/L (15-37) H 07/04/17 19:25 ALT 120 U/L (14-59) H 07/04/17 19:25 Urine Color Yellow (Yellow) 07/03/17 18:35 Urine Appearance Clear (Clear) 07/03/17 18:35 Urine pH 6.5 (5.0-8.0) 07/03/17 18:35 Ur Specific [place] 1.020 (1.005-1.030) 07/03/17 18:35 Urine Protein 1+ (Negative) H 07/03/17 18:35 Urine Glucose (UA) Negative (Negative) 07/03/17 18:35 Urine Ketones Negative (Negative) 07/03/17 18:35 Urine Occult Blood Negative (Negative) 07/03/17 18:35 Urine Nitrite Negative (Negative) 07/03/17 18:35 Urine Bilirubin Negative (Negative) 07/03/17 18:35 Urine Urobilinogen 0.2 (0.2-1.0) 07/03/17 18:35 Ur Leukocyte Esterase Negative (Negative) 07/03/17 18:35 Urine RBC 0-5 /hpf (0-5) 07/03/17 18:35 Urine WBC 0-5 /hpf (0-5) 07/03/17 18:35 Ur Epithelial Cells 0-5 /hpf (0-5) 07/03/17 18:35 Urine Bacteria Rare /hpf (FEW) 07/03/17 18:35 Urine Mucus Not seen /hpf (FEW) 07/03/17 18:35 Blood Type AB NEGATIVE 07/03/17 17:30 Gel Antibody Screen Positive 07/03/17 17:30
[2017-07-05] MEDS ORDERED: Labetalol 100 MG Tab PO SCH (07:00)
--- NOTE | 2017-07-05 08:25 | PCM.PNPP ---
- General Info Date of Service: 07/05/17 Functional Status: Reports: Pain Controlled, Tolerating Diet, Ambulating, Urinating - Review of Systems General: Reports: No Symptoms Pulmonary: Reports: No Symptoms Cardiovascular: Reports: No Symptoms Gastrointestinal: Reports: No Symptoms Genitourinary: Reports: No Symptoms Musculoskeletal: Reports: No Symptoms - Patient Data Vital Signs - Most Recent: Last Vital Signs Temp 37.5 C 07/05/17 05:35 Pulse 74 07/05/17 08:05 Resp 15 07/05/17 05:35 BP 132/89 07/05/17 08:05 Pulse Ox 100 07/04/17 19:42 Weight - Most Recent: 59.421 kg I&O - Last 24 Hours: Intake & Output 07/04/17 07/05/17 07/05/17 22:59 06:59 14:59 Intake Total 1630 1000 Output Total 900 Balance 730 1000 Lab Results - Last 24 Hours: Laboratory Results - last 24 hr 07/04/17 07/04/17 07/04/17 Range/Units 19:25 19:25 19:25 WBC 12.97 H (3.98-10.04) K/mm3 RBC 4.45 (3.98-5.22) M/mm3 Hgb 14.2 (11.2-15.7) gm/L Hct 41.3 (34.1-44.9) % MCV 92.8 (79.4-94.8) fl MCH 31.9 (25.6-32.2) pg MCHC 34.4 (32.2-35.5) g/dl RDW Std Deviation 45.9 (36.4-46.3) fL Plt Count 146 L (182-369) K/mm3 MPV 10.9 (9.4-12.3) fl Neut % (Auto) 87.7 H (34.0-71.1) % Lymph % (Auto) 6.4 L (19.3-51.7) % [place] % (Auto) 5.0 (4.7-12.5) % Eos % (Auto) 0.2 L (0.7-5.8) Baso % (Auto) 0.2 (0.1-1.2) % Neut # (Auto) 11.38 H (1.56-6.13) K/mm3 Lymph # (Auto) 0.83 L (1.18-3.74) K/mm3 [place] # (Auto) 0.65 H (0.24-0.36) K/mm3 Eos # (Auto) 0.03 L (0.04-0.36) K/mm3 Baso # (Auto) 0.02 (0.01-0.08) K/mm3 Manual Slide Review Normal smear Creatinine 0.8 (0.55-1.02) mg/dL Est Cr Clr Drug Dosing 77.22 mL/min Estimated GFR (MDRD) > 60 (>60) mL/min AST 165 H (15-37) U/L ALT 120 H (14-59) U/L 07/05/17 07/05/17 Range/Units 06:55 06:55 WBC 9.68 (3.98-10.04) K/mm3 RBC 3.91 L (3.98-5.22) M/mm3 Hgb 12.4 (11.2-15.7) gm/L Hct 36.6 (34.1-44.9) % MCV 93.6 (79.4-94.8) fl MCH 31.7 (25.6-32.2) pg MCHC 33.9 (32.2-35.5) g/dl RDW Std Deviation 46.6 H (36.4-46.3) fL Plt Count 122 L (182-369) K/mm3 MPV 10.4 (9.4-12.3) fl Neut % (Auto) (34.0-71.1) % Lymph % (Auto) (19.3-51.7) % [place] % (Auto) (4.7-12.5) % Eos % (Auto) (0.7-5.8) Baso % (Auto) (0.1-1.2) % Neut # (Auto) (1.56-6.13) K/mm3 Lymph # (Auto) (1.18-3.74) K/mm3 [place] # (Auto) (0.24-0.36) K/mm3 Eos # (Auto) (0.04-0.36) K/mm3 Baso # (Auto) (0.01-0.08) K/mm3 Manual Slide Review Creatinine (0.55-1.02) mg/dL Est Cr Clr Drug Dosing mL/min Estimated GFR (MDRD) (>60) mL/min AST 83 H (15-37) U/L ALT 87 H (14-59) U/L Med Orders - Current: Current Medications Acetaminophen (Tylenol) 650 mg PO Q4H PRN PRN Reason: mild pain or fever Benzocaine/Menthol (Dermoplast Pain Relief [place]) 0 gm TOP ASDIRECTED PRN PRN Reason: Perineal Comfort Measure Last Admin: 07/03/17 23:19 Dose: 1 can Calcium Gluconate (Calcium Gluconate) 1 gm IV ASDIRECTED PRN PRN Reason: respiratory distress Docusate Sodium (Colace) 100 mg PO BID PRN PRN Reason: Constipation Emollient Ointment (Lansinoh Hpa) 0 gm TOP ASDIRECTED PRN PRN Reason: Sore Nipples Last Admin: 07/03/17 23:19 Dose: 1 tube Ibuprofen (Motrin) 600 mg PO Q6H PRN PRN Reason: Mild pain or fever Last Admin: 07/04/17 18:49 Dose: 600 mg Labetalol HCl (Normodyne) 200 mg PO BID [facility] Last Admin: 07/05/17 08:05 Dose: 200 mg Witch Latosha (Tucks) 1 pad TOP ASDIRECTED PRN PRN Reason: Hemorrhoid pain Last Admin: 07/03/17 23:19 Dose: 1 container Discontinued Medications Diphenhydramine HCl (Benadryl) 25 mg IVPUSH Q6H PRN PRN Reason: Pruritis Ephedrine Sulfate (Ephedrine Sulfate) 5 mg IVPUSH ASDIRECTED PRN PRN Reason: Hypotension Fentanyl (Sublimaze) 100 mcg EPIDUR Q3H PRN PRN Reason: Pain Last Admin: 07/03/17 21:32 Dose: 100 mcg Fentanyl (Sublimaze) Confirm Administered Dose 100 mcg .ROUTE .STK-MED ONE Stop: 07/03/17 21:00 Last Admin: 07/04/17 05:20 Dose: Not Given Fentanyl/Bupivacaine HCl (Fentanyl/Bupivacaine/Ns 2 Mcg-0.125% 100 Ml) 100 ml EPIDUR ASDIRECTED [facility] Last Admin: 07/03/17 21:33 Dose: 100 ml Lactated Ringer's (Ringers, Lactated) 1,000 mls @ 40 mls/hr IV ASDIRECTED KAREN Last Admin: 07/04/17 07:18 Dose: 40 mls/hr Oxytocin/Lactated Ringer's (Pitocin In Lr 10 Units/1,000 Ml) 10 unit in 1,000 mls @ 12 mls/hr IV TITRATE KAREN; 2 MUNITS/MIN PRN Reason: Protocol Last Titration: 07/03/17 21:33 Dose: 999 mls/hr Oxytocin/Lactated Ringer's (Pitocin In Lr 10 Units/1,000 Ml) 10 unit in 1,000 mls @ 500 mls/hr IV .CONTINUOUS KAREN Magnesium Sulfate 4 gm/ Premix 100 mls @ 300 mls/hr IV ONETIME ONE Stop: 07/03/17 19:02 Last Admin: 07/03/17 19:05 Dose: 300 mls/hr Magnesium Sulfate 2 gm/ Premix 50 mls @ 300 mls/hr IV ONETIME ONE Stop: 07/03/17 18:52 Last Admin: 07/03/17 19:32 Dose: 300 mls/hr Magnesium Sulfate (Magnesium Sulfate 40 Gm In Water 1000 Ml) 40 gm in 1,000 mls @ 50 mls/hr IV ASDIRECTED KAREN Last Admin: 07/04/17 16:15 Dose: 50 mls/hr Magnesium Sulfate (Magnesium Sulfate 4 Gm In Water 100 Ml) Confirm Administered Dose 100 mls @ as directed .ROUTE .STK-MED ONE Stop: 07/03/17 18:48 Last Admin: 07/03/17 20:48 Dose: Not Given Magnesium Sulfate (Magnesium Sulfate 2 Gm In Water 50 Ml) Confirm Administered Dose 50 mls @ as directed .ROUTE .STK-MED ONE Stop: 07/03/17 18:48 Last Admin: 07/03/17 20:48 Dose: Not Given Magnesium Sulfate (Magnesium Sulfate 40 Gm In Water 1000 Ml) Confirm Administered Dose 40 gm in 1,000 mls @ as directed .ROUTE .STK-MED ONE Stop: 07/03/17 18:49 Last Admin: 07/03/17 20:48 Dose: Not Given Labetalol HCl (Normodyne) 200 mg PO ONETIME ONE Stop: 07/03/17 18:17 Last Admin: 07/03/17 18:23 Dose: 200 mg Labetalol HCl (Normodyne) 20 mg IVPUSH ONETIME ONE PRN Reason: Protocol Stop: 07/03/17 18:51 Last Admin: 07/03/17 18:53 Dose: 4 ml Labetalol HCl (Normodyne) Confirm Administered Dose 100 mg .ROUTE .STK-MED ONE Stop: 07/03/17 18:50 Last Admin: 07/03/17 20:48 Dose: Not Given Labetalol HCl (Normodyne) 200 mg PO ONETIME ONE Stop: 07/04/17 19:37 Last Admin: 07/04/17 19:44 Dose: 200 mg Nalbuphine HCl (Nubain) 10 mg IVPUSH Q2H PRN PRN Reason: Pain (moderate 4-6) Ondansetron HCl (Zofran) 4 mg IVPUSH Q4H PRN PRN Reason: Nausea/Vomiting Ondansetron HCl (Zofran) 4 mg IVPUSH ONETIME PRN PRN Reason: Nausea/Vomiting Sodium Chloride (Saline Flush) 10 ml FLUSH ASDIRECTED PRN PRN Reason: Keep Vein Open - Interaction Disposition, : in Room with Family Interaction: Holding Infant Feeding: Breastfed ; Nursed Well Support Person: - Recovery Exam Fundal Tone: Firm Fundal Level: 1 Fingerbreadths Below Umbilicus Fundal Placement: Midline Lochia Amount: Scant, Small Lochia Color: Rubra/Red Perineum Description: Intact, Minimal Bruising/Swelling Episiotomy/Laceration: None Bladder Status: Voiding Urinary Elimination: Voided - Exam General: Alert, Oriented, Cooperative Lungs: Clear to Auscultation, Normal Respiratory Effort Cardiovascular: Regular Rate, Regular Rhythm GI/Abdominal Exam: Soft, Non-Tender Extremities: Normal Inspection Skin: Warm, Dry, Intact Neurological: Reflexes Equal Bilateral (+2) - Problem List & Annotations (1) 37 weeks gestation of SNOMED Code(s): 99436669 Code(s): Z3A.37 - 37 WEEKS GESTATION OF Status: Acute Current Visit: Yes (2) Preeclampsia SNOMED Code(s): 601355706 Code(s): O14.90 - UNSPECIFIED PRE-ECLAMPSIA, UNSPECIFIED TRIMESTER Status: Acute Current Visit: Yes Qualifiers: Trimester: third trimester Qualified Code(s): O14.93 - Unspecified pre- eclampsia, third trimester (3) IUGR (intrauterine growth restriction) SNOMED Code(s): 37848338 Code(s): RXD1245 - Status: Acute Current Visit: Yes (4) Vaginal delivery SNOMED Code(s): 582696559 Code(s): O80 - ENCOUNTER FOR FULL-TERM UNCOMPLICATED DELIVERY Status: Acute Current Visit: Yes - Problem List Review Problem List Initiated/Reviewed/Updated: Yes - My Orders Last 24 Hours: My Active Orders 07/04/17 22:03 Heat Therapy [OM.PC] PRN 07/05/17 07:00 Labetalol [Normodyne] 200 mg PO BID - Assessment Assessment:: 27 y/o G2 now P1011 PPD#2 from at 37 3/7 wks - Plan Plan:: / Severe preeclampsia * S/p 24 hours of magnesium * Labetalol 200 mg BID started last night at 1900. Doing well since initiation * LFT's bumped last night, but down tending this AM. No further monitoring needed * Serial BP's * Encourage breast feeding * Baby Rh negative, no need for Rhogam * Discharge late today vs tomorrow depending upon clinical course * Will need follow up Saturday for BP check
[2017-07-05 14:11] VITALS: BP 139/78
--- NOTE | 2017-07-05 15:46 | PCM.DCSUM1 ---
Discharge Summary - Discharge Data Discharge Date: 07/05/17 Discharge Disposition: Home, Self-Care 01 Condition: Good - Discharge Diagnosis/Problem(s) (1) 37 weeks gestation of SNOMED Code(s): 74054690 ICD Code: Z3A.37 - 37 WEEKS GESTATION OF Status: Acute (2) Preeclampsia SNOMED Code(s): 694161344 ICD Code: O14.90 - UNSPECIFIED PRE-ECLAMPSIA, UNSPECIFIED TRIMESTER Status : Acute Qualifiers: Trimester: third trimester Qualified Code(s): O14.93 - Unspecified pre- eclampsia, third trimester (3) IUGR (intrauterine growth restriction) SNOMED Code(s): 98957227 ICD Code: [id number] - Status: Acute (4) Vaginal delivery SNOMED Code(s): 711271215 ICD Code: O80 - ENCOUNTER FOR FULL-TERM UNCOMPLICATED DELIVERY Status: Acute - Patient Summary/Data Complications: None Consults: None Recommended Follow-up Testing/Procedures: Follow up in 3 days for BP check in clinic Hospital Course: Patient is a 27 y/o at 37 3/7 wks who presented from clinic for findings of IUGR on US and mild range BP. Once in L&D she had several severe range BP's requiring IV and oral anti-hypertensive therapy. Labs were normal. Magnesium started along with anti-hypertensive medications. Once BP's stabilized IOL started with AROM and pitocin. She made extremely rapid progress and underwent an uncomplicated about 2.5 hours after induction started. See delivery note. her magnesium was continued for 24 hours. Labs were repeated on PPD#0 due to increasing complaints of RUQ pain. These did show a bump in LFT's, but this was already down trending by PPD#2. Once magnesium discontinued patient did require oral labetalol to maintain BP' s. She was discharged on this medication with plans to follow up in clinic in 3 days for BP check. - Patient Instructions Diet: Regular Diet as Tolerated Activity: As Tolerated Driving: May Drive Today Showering/Bathing: May Shower Showering/Bathing, Other: May Bathe Notify Provider of: Fever, Increased Pain, Swelling and Redness, Drainage, Nausea and/or Vomiting Other/Special Instructions: Notify of headaches, vision changes, or pain in the upper abdomen - Discharge Plan Prescriptions/Med Rec: Labetalol HCl [Labetalol] 200 mg PO BID #60 tablet Home Medications: Home Meds PNV95/Ferrous Fumarate/FA [ Formula Tablet] 1 each PO DAILY 11/28/16 [ History] Docusate Sodium [Colace] 100 mg PO BID PRN cap 07/05/17 [Rx] Ibuprofen [IJD: Ibuprofen] 600 mg PO Q6H PRN tablet 07/05/17 [Rx] Labetalol HCl [Labetalol] 200 mg PO BID #60 tablet 07/05/17 [Rx] Patient Handouts: Exclusive , Mastitis, Home Care Instructions for Mom, Breast Engorgement Referrals: Charis Fontenot MD [Primary Care Provider] - (07/08 or 07/09 for BP check ) - Discharge Summary/Plan Comment DC Time >30 min.: No - Patient Data Vitals - Most Recent: Last Vital Signs Temp 36.9 C 07/05/17 12:00 Pulse 91 07/05/17 13:55 Resp 18 07/05/17 12:00 BP 139/78 07/05/17 13:56 Pulse Ox 97 07/05/17 13:55 Weight - Most Recent: 59.421 kg I&O - Last 24 hours: Intake & Output 07/05/17 07/05/17 07/05/17 06:59 14:59 22:59 Intake Total 1000 120 Balance 1000 120 Lab Results - Last 24 hrs: Laboratory Results - last 24 hr 07/04/17 07/04/17 07/04/17 Range/Units 19:25 19:25 19:25 WBC 12.97 H (3.98-10.04) K/mm3 RBC 4.45 (3.98-5.22) M/mm3 Hgb 14.2 (11.2-15.7) gm/L Hct 41.3 (34.1-44.9) % MCV 92.8 (79.4-94.8) fl MCH 31.9 (25.6-32.2) pg MCHC 34.4 (32.2-35.5) g/dl RDW Std Deviation 45.9 (36.4-46.3) fL Plt Count 146 L (182-369) K/mm3 MPV 10.9 (9.4-12.3) fl Neut % (Auto) 87.7 H (34.0-71.1) % Lymph % (Auto) 6.4 L (19.3-51.7) % [place] % (Auto) 5.0 (4.7-12.5) % Eos % (Auto) 0.2 L (0.7-5.8) Baso % (Auto) 0.2 (0.1-1.2) % Neut # (Auto) 11.38 H (1.56-6.13) K/mm3 Lymph # (Auto) 0.83 L (1.18-3.74) K/mm3 [place] # (Auto) 0.65 H (0.24-0.36) K/mm3 Eos # (Auto) 0.03 L (0.04-0.36) K/mm3 Baso # (Auto) 0.02 (0.01-0.08) K/mm3 Manual Slide Review Normal smear Creatinine 0.8 (0.55-1.02) mg/dL Est Cr Clr Drug Dosing 77.22 mL/min Estimated GFR (MDRD) > 60 (>60) mL/min AST 165 H (15-37) U/L ALT 120 H (14-59) U/L 07/05/17 07/05/17 Range/Units 06:55 06:55 WBC 9.68 (3.98-10.04) K/mm3 RBC 3.91 L (3.98-5.22) M/mm3 Hgb 12.4 (11.2-15.7) gm/L Hct 36.6 (34.1-44.9) % MCV 93.6 (79.4-94.8) fl MCH 31.7 (25.6-32.2) pg MCHC 33.9 (32.2-35.5) g/dl RDW Std Deviation 46.6 H (36.4-46.3) fL Plt Count 122 L (182-369) K/mm3 MPV 10.4 (9.4-12.3) fl Neut % (Auto) (34.0-71.1) % Lymph % (Auto) (19.3-51.7) % [place] % (Auto) (4.7-12.5) % Eos % (Auto) (0.7-5.8) Baso % (Auto) (0.1-1.2) % Neut # (Auto) (1.56-6.13) K/mm3 Lymph # (Auto) (1.18-3.74) K/mm3 [place] # (Auto) (0.24-0.36) K/mm3 Eos # (Auto) (0.04-0.36) K/mm3 Baso # (Auto) (0.01-0.08) K/mm3 Manual Slide Review Creatinine (0.55-1.02) mg/dL Est Cr Clr Drug Dosing mL/min Estimated GFR (MDRD) (>60) mL/min AST 83 H (15-37) U/L ALT 87 H (14-59) U/L Med Orders - Current: Current Medications Acetaminophen (Tylenol) 650 mg PO Q4H PRN PRN Reason: mild pain or fever Benzocaine/Menthol (Dermoplast Pain Relief [place]) 0 gm TOP ASDIRECTED PRN PRN Reason: Perineal Comfort Measure Last Admin: 07/03/17 23:19 Dose: 1 can Calcium Gluconate (Calcium Gluconate) 1 gm IV ASDIRECTED PRN PRN Reason: respiratory distress Docusate Sodium (Colace) 100 mg PO BID PRN PRN Reason: Constipation Emollient Ointment (Lansinoh Hpa) 0 gm TOP ASDIRECTED PRN PRN Reason: Sore Nipples Last Admin: 07/03/17 23:19 Dose: 1 tube Ibuprofen (Motrin) 600 mg PO Q6H PRN PRN Reason: Mild pain or fever Last Admin: 07/04/17 18:49 Dose: 600 mg Labetalol HCl (Normodyne) 200 mg PO BID KAREN Last Admin: 07/05/17 08:05 Dose: 200 mg Witch Latosha (Tucks) 1 pad TOP ASDIRECTED PRN PRN Reason: Hemorrhoid pain Last Admin: 07/03/17 23:19 Dose: 1 container Discontinued Medications Diphenhydramine HCl (Benadryl) 25 mg IVPUSH Q6H PRN PRN Reason: Pruritis Ephedrine Sulfate (Ephedrine Sulfate) 5 mg IVPUSH ASDIRECTED PRN PRN Reason: Hypotension Fentanyl (Sublimaze) 100 mcg EPIDUR Q3H PRN PRN Reason: Pain Last Admin: 07/03/17 21:32 Dose: 100 mcg Fentanyl (Sublimaze) Confirm Administered Dose 100 mcg .ROUTE .[facility]-MED ONE Stop: 07/03/17 21:00 Last Admin: 07/04/17 05:20 Dose: Not Given Fentanyl/Bupivacaine HCl (Fentanyl/Bupivacaine/Ns 2 Mcg-0.125% 100 Ml) 100 ml EPIDUR ASDIRECTED [facility] Last Admin: 07/03/17 21:33 Dose: 100 ml Lactated Ringer's (Ringers, Lactated) 1,000 mls @ 40 mls/hr IV ASDIRECTED [facility] Last Admin: 07/04/17 07:18 Dose: 40 mls/hr Oxytocin/Lactated Ringer's (Pitocin In Lr 10 Units/1,000 Ml) 10 unit in 1,000 mls @ 12 mls/hr IV TITRATE KAREN; 2 MUNITS/MIN PRN Reason: Protocol Last Titration: 07/03/17 21:33 Dose: 999 mls/hr Oxytocin/Lactated Ringer's (Pitocin In Lr 10 Units/1,000 Ml) 10 unit in 1,000 mls @ 500 mls/hr IV .CONTINUOUS KAREN Magnesium Sulfate 4 gm/ Premix 100 mls @ 300 mls/hr IV ONETIME ONE Stop: 07/03/17 19:02 Last Admin: 07/03/17 19:05 Dose: 300 mls/hr Magnesium Sulfate 2 gm/ Premix 50 mls @ 300 mls/hr IV ONETIME ONE Stop: 07/03/17 18:52 Last Admin: 07/03/17 19:32 Dose: 300 mls/hr Magnesium Sulfate (Magnesium Sulfate 40 Gm In Water 1000 Ml) 40 gm in 1,000 mls @ 50 mls/hr IV ASDIRECTED [facility] Last Admin: 07/04/17 16:15 Dose: 50 mls/hr Magnesium Sulfate (Magnesium Sulfate 4 Gm In Water 100 Ml) Confirm Administered Dose 100 mls @ as directed .ROUTE .[facility] ONE Stop: 07/03/17 18:48 Last Admin: 07/03/17 20:48 Dose: Not Given Magnesium Sulfate (Magnesium Sulfate 2 Gm In Water 50 Ml) Confirm Administered Dose 50 mls @ as directed .ROUTE .[facility] ONE Stop: 07/03/17 18:48 Last Admin: 07/03/17 20:48 Dose: Not Given Magnesium Sulfate (Magnesium Sulfate 40 Gm In Water 1000 Ml) Confirm Administered Dose 40 gm in 1,000 mls @ as directed .ROUTE .STK-MED ONE Stop: 07/03/17 18:49 Last Admin: 07/03/17 20:48 Dose: Not Given Labetalol HCl (Normodyne) 200 mg PO ONETIME ONE Stop: 07/03/17 18:17 Last Admin: 07/03/17 18:23 Dose: 200 mg Labetalol HCl (Normodyne) 20 mg IVPUSH ONETIME ONE PRN Reason: Protocol Stop: 07/03/17 18:51 Last Admin: 07/03/17 18:53 Dose: 4 ml Labetalol HCl (Normodyne) Confirm Administered Dose 100 mg .ROUTE .[employer]-MED ONE Stop: 07/03/17 18:50 Last Admin: 07/03/17 20:48 Dose: Not Given Labetalol HCl (Normodyne) 200 mg PO ONETIME ONE Stop: 07/04/17 19:37 Last Admin: 07/04/17 19:44 Dose: 200 mg Nalbuphine HCl (Nubain) 10 mg IVPUSH Q2H PRN PRN Reason: Pain (moderate 4-6) Ondansetron HCl (Zofran) 4 mg IVPUSH Q4H PRN PRN Reason: Nausea/Vomiting Ondansetron HCl (Zofran) 4 mg IVPUSH ONETIME PRN PRN Reason: Nausea/Vomiting Sodium Chloride (Saline Flush) 10 ml FLUSH ASDIRECTED PRN PRN Reason: Keep Vein Open *Q Meaningful Use (DIS) - VTE *Q VTE Criteria *Q: - Stroke *Q Stroke Criteria *Q: - AMI *Q AMI Criteria *Q:
[2017-07-05] MEDS ORDERED: Measles, Mumps & Rubella Vaccine 0.5 ML SDV SUBCUT ONE (15:54)
== END 2017-07-05 17:10 | disposition home or self-care (01) | DRG 775 ==
LOC: JD.OBCHECK 16:47 → JD.OB 16:47 → JD.OBCHECK 17:05 → JD.OB 17:06 → OBSVTOIN 21:33 → JD.OB 21:33
PROVIDERS: ADMIT Obstetrics & Gynecology; ATTEND Obstetrics & Gynecology
PROC: 10E0XZZ Delivery of Products of Conception, External Approach (ICD-10-PCS; principal; 2017-07-03)
PROC: 3E033VJ Introduction of Other Hormone into Peripheral Vein, Percutaneous Approach (ICD-10-PCS; 2017-07-03)
PROC: 10907ZC Drainage of Amniotic Fluid, Therapeutic from Products of Conception, Via Natural or Artificial Opening (ICD-10-PCS; 2017-07-03)
PROC: 00HU33Z Insertion of Infusion Device into Spinal Canal, Percutaneous Approach (ICD-10-PCS; 2017-07-03)
PROC: 3E0R3BZ Introduction of Anesthetic Agent into Spinal Canal, Percutaneous Approach (ICD-10-PCS; 2017-07-03)
DX: O14.14 Severe pre-eclampsia complicating childbirth (principal); O36.5930 Maternal care for other known or suspected poor fetal growth, third trimester, not applicable or unspecified; Z3A.37 37 weeks gestation of pregnancy; Z37.0 Single live birth
CPT/HCPCS: 01967; 36415; 59409; 81001; 82565; 84450; 84460; 85025; 85027; 86850; 86870; 86900; 86901; 90471; 90707; A9270-GY; J2590; J3010; J3475; J7120